=== PATIENT | female | born 1990 | race Caucasian/White ===

== ENCOUNTER 2024-08-04 10:07 | Emergency (ER) | payer BC, SELFPAY ==
--- NOTE | 2024-08-04 10:09 | ED.URI ---
HPI - URI/Sore Throat General Chief Complaint: Upper Respiratory Infection Stated Complaint: cold like Time Seen by Provider: 08/04/24 10:09 Source: patient Mode of arrival: ambulatory Limitations: no limitations History of Present Illness HPI Narrative: Patient is a 34-year-old female who presents with 1 week cough. With 5 days of body aches, chills and fevers. Fever highest of 102. Denies fever this morning. States she started having shortness of breath and feeling her chest rattle last night. Has been taking Delsym, Tylenol and Mucinex. Related Data Allergies Allergy/AdvReac Type Severity Reaction Status Date / Time No Known Allergies Allergy Unverified 08/04/24 10:23 Review of Systems Review of Systems: All systems reviewed & are unremarkable except as noted in HPI and below Constitutional: Constitutional: Reports chills, Denies fatigue, Reports fever(s), Denies headache(s), Denies malaise and Denies weakness Eyes: Eyes: Denies blurry vision, Denies itchy eyes and Denies loss of vision ENT: Denies otalgia, Denies headache(s), Denies nasal congestion, Denies sinus pain and Denies sore throat Cardiovascular: Cardiovascular: Denies chest pain, Denies irregular heart rhythm and Denies dyspnea Respiratory: Respiratory: Reports cough and Denies dyspnea Gastrointestinal: Gastrointestinal: Denies abdominal pain, Denies diarrhea, Denies nausea and Denies vomiting Musculoskeletal: Musculoskeletal: Denies back pain, Reports myalgias and Denies arthralgias Integumentary/Breasts: Skin/Breast: Denies pruritus and Denies rash Neurologic: Denies headache(s), Denies loss of vision and Denies weakness Psychiatric: Psychiatric: Reports no additional psychiatric complaints Endocrine: Endocrine: Denies fatigue Allergic/Immunologic: Allergic/Immunologic: Denies itchy eyes PMFSH Past Medical History Medical History IBS (irritable bowel syndrome) Surgical History Surgical History H/O pelvic surgery Family History Family History Father Alcoholism Mother Heart disease Sibling Asthma Grandparent Cervical cancer Cerebrovascular accident Social History Social History Social History: 01/10/24 Smoking status: Never smoker Alcohol intake: current Substance use: never Do You Feel Safe in your Home?: Yes Lack of Transportation: No Lack of Food: Never True Current Housing: I Have Housing Concerned About Future Housing: No Difficulty Paying Gas/Electric Bills: No Difficulty Paying for Meds: No Currently Unemployed: No Education: Associate Degree Difficulty w/ Childcare or Family Care: No Living arrangements: with family Additional living arrangements comments: Occupation/Education: occupation 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 There is no relevant family history pertinent to the presenting complaint. Exam Const: General: cooperative, healthy appearing, comfortable, no acute distress and well nourished Nutritional Appearance: well nourished Orientation/consciousness: patient oriented x3 Limitations: no limitations HENMT: Head: normal to inspection, normocephalic and atraumatic Ears: hearing grossly normal bilaterally, external ears normal, TM's normal bilaterally, EAC's normal and no periauricular adenopathy Face/Nose/Sinus: Normal external nose present, Abnormal mucous membranes and turbinates present erythematous bilateral and diffuse, normal facial exam, sinuses nontender and face symmetric Face and sinus: normal facial exam, sinuses nontender and face symmetric Mouth: Yes Normal oral and palatal mucosa present, Yes lip normal, Yes tongue normal, Yes Normal salivary glands and ducts present, Yes oropharynx normal and Yes moist mucous membranes Teeth and gingiva: dentition normal Throat: tonsils normal, uvula midline and posterior oropharynx abnormal erythema Eyes: General: appearance normal, both eyes and all related structures Alignment and Position: alignment normal and position normal Periorbital: periorbital findings normal Eyelids: eyelids normal Pupils: Equal, round and reactive pupils present Neck: Neck: normal visual inspection, full ROM, no lymphadenopathy and supple Chest: Chest palpation & inspection: normal inspection of the chest and normal palpation of entire chest wall Resp: Effort & Inspection: normal respiratory effort and able to speak in complete sentences Auscultation: no crackles, no rales, rhonchi upper bilaterally and no wheezes Cardio: Rate: regular rate Rhythm: regular rhythm Heart sounds: S1 normal heart sound present and S2 normal heart sound present GI: Inspection: normal to inspection Skin: General skin exam: normal color and no rashes or lesions noted Neuro: General: patient oriented x3 and moves all extremities Cranial nerves: Yes Equal, round and reactive pupils present Speech: normal speech Gait exam (Neuro): Normal gait present Extrem: General: normal to inspection, full ROM and no edema Psych: Appearance: grossly normal and well kempt Mental Status: mental status grossly normal Speech and movement: Normal speech and movement present Affect: normal affect Attitude: cooperative Thought process: Normal thought process present Course Course Emergency Course: Discharge instructions reviewed with patient, as well as provided in writing per nursing staff. The instructions also include specific and strict return/GO TO THE ER as well as f/u information. All questions have been answered, and the patient deny any further questions with discharge and discharge plan. Portions of this record may have been created with voice recognition software Level of Care: Express Care Visit Vital Signs Vital signs: Vital Signs Temperature 36.4 C 08/04/24 10:21 Pulse Rate 97 08/04/24 10:21 Respiratory Rate 17 08/04/24 10:21 Blood Pressure 128/80 08/04/24 10:21 Pulse Oximetry 95 08/04/24 10:21 Oxygen Delivery Room Air 08/04/24 10:21 Temperature 36.4 C 08/04/24 10:21 Pulse Rate 97 08/04/24 10:21 Respiratory Rate 17 08/04/24 10:21 Blood Pressure 128/80 08/04/24 10:21 Pulse Oximetry 95 08/04/24 10:21 Oxygen Delivery Room Air 08/04/24 10:21 Reviewed MDM - URI/Sore Throat MDM Narrative Medical decision making narrative: Patient negative for flu and COVID. Length of illness and exam consistent with bacterial bronchitis. Will treat with antibiotics, steroid, albuterol inhaler and Tessalon Perles. Pt well hydrated appearing, in no respiratory distress, hemodynamically stable. Recommend supportive care. The patient is stable at time of discharge the clinical impression was discussed and the patient was given the opportunity to ask questions, which were addressed as completely as possible given the information available at present. Anticipatory guidance and return to care precautions were discussed and the importance of primary care follow-up was stressed and encouraged. The patient voiced understanding of the plan, indications to return, and the need for follow-up. Exam findings show no acute concerns or changes Patient is appropriate for outpatient treatment and follow-up. Differential diagnosis considered: Valverde virus, strep pharyngitis, allergic rhinitis, upper respiratory tract infection, sinusitis, rhinosinusitis, nasopharyngitis. viral pharyngitis, otitis media, otitis externa, otitis effusion, foreign body, cerumen impaction, viral syndrome, and influenza.? Medical Records Attestation: I reviewed the patient's medical records. Lab Data Attestation: I reviewed the patient's lab results. Labs: Lab Results 08/04/24 Range/Units 10:35 POC Influenza A Ag Negative (Negative) POC Influenza B Ag Negative (Negative) POC SARS CoV-2 Ag Negative (Negative) Discharge Plan Discharge Clinical Impression: Acute purulent bronchitis Patient Disposition: Home Condition: Stable Instructions: Acute Bronchitis (ED) Additional Instructions: Take antibiotic as prescribed. Take steroids in the morning with food. Use Tessalon Perles as needed for cough. Use inhaler with spacer as needed. Other symptomatic treatments include: -Alternate Tylenol and Motrin per package directions for fever or pain: Tylenol 650-1000mg by mouth every 4-6 hours. Do not exceed 4000mg in 24 hours. Advil (Ibuprofen) 600 mg by mouth every 6 hours. Do not exceed 2400mg in 24 hours. 8 AM: Tylenol 11 AM: Ibuprofen 2 PM: Tylenol 5 PM: Ibuprofen 8 PM: Tylenol 11 PM: Ibuprofen 2 AM: Tylenol 5 AM: Ibuprofen -Antihistamine medication such as Benadryl at night and Zyrtec/Claritin/Jeanine during the day can help improve symptoms. -Use Flonase twice a day for 5 days then daily to help reduce the inflammation and dry up your sinuses. -You can also use Sudafed or Mucinex. Be sure to drink plenty of water with these medications at least 8 ounces with every dose and it is important to drink 8 to 10 glasses of water per day. Water is a natural decongestant -Eat and drink things that are easy to swallow, like tea or soup, or popsicles. -Oral rinses such as: Salt water gargles and/or may use topical anesthetic (eg. Chloraseptic spray) or lozenges to relieve dryness or throat pain). -Frequent hand washing or hand wetlands technician is one of the best ways to prevent spread of infection. -Using a vaporizer or humidifier at night will also help thin secretions and help with coughing up phlegm. Call your Primary Care Doctor and make a follow-up appointment in 3 days. If your cough worsens, you develop a fever greater than 103, you develop shaking chills, a fast heartbeat, trouble breathing and/or feel you are are breathing much faster than usual, call your Primary Care Doctor or go to the ER. Patient Language: Belarusian Prescriptions: New (DME) Aerochamber MV Spacer See Rx Instructions .Route Qty: 1 0RF Rx Instructions: As directed azithromycin 250 mg tablet See Rx Instructions .ROUTE .COMPLEX Qty: 6 0RF Rx Instructions: For 250 mg dose pack: take 500 mg today (day 1), then 250 mg for 4 days (days 2-5) benzonatate 100 mg capsule 100 mg PO BID PRN (Reason: cough) Qty: 14 0RF albuterol sulfate 90 mcg/actuation HFA aerosol inhaler 2 puff inhalation QID PRN (Reason: shortness of breath or wheezing) Qty: 6.7 0RF prednisone 20 mg tablet 40 mg PO DAILY 5 Days Qty: 10 0RF Follow-up/Referrals: Pamela Mario APRN [Primary Care Provider] - 3 Days Time of Disposition: 10:43
[2024-08-04 10:21] VITALS: BP 128/80; PULSE 97; RESP 17; TEMP 36.4; O2SAT 95
[2024-08-04 10:37] LABS: EDCOVIDSCREEN Negative (Negative); EDINFLUASCREEN Negative (Negative); EDINFLUBSCREEN Negative (Negative)
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
== END 2024-08-04 10:46 | disposition home or self-care (01) ==
PROVIDERS: Emergency Provider Nurse Practitioner Family; PCP Nurse Practitioner Family
DX: J20.9 Acute bronchitis, unspecified (principal); Z20.822 Contact with and (suspected) exposure to COVID-19; K58.9 Irritable bowel syndrome, unspecified
CPT/HCPCS: 87426; 87804; 99213; G0463

== ENCOUNTER 2025-02-10 18:55 | Emergency (ER) | payer BC, SELFPAY ==
--- NOTE | ~2025-02-10 | US_ITS ---
US OB <=14 wk fetus w TV INDICATION:4 weeks, LLQ pain, bleeding, r/o ectopic COMPARISON: None. TECHNIQUE: Transvaginal ultrasound of the pelvis was performed. FINDINGS: The uterus measures 7.7 x 3.5 x 5.7 cm. No intrauterine identified. There is a cystic structure in the cervix measuring 7 x 4 x 5 mm may represent gestational sac. The right ovary measures 2 x 1.7 x 2.4 cm. The left ovary measures 2.3 x 2 x 1.6 cm. The ovaries are normal in appearance. No adnexal masses are seen. Trace fluid is noted around the ovaries. IMPRESSION: No live intrauterine identified. There is a cystic structure in the cervix may represent a gestational sac. Follow-up with executive consultant is recommended. Reviewed, dictated and finalized at location S. IMPRESSION: No live intrauterine identified. There is a cystic structure in the c ervix may represent a gestational sac. Follow-up with executive consultant is recommend ed.
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
[2025-02-10 19:20] VITALS: BP 139/74; PULSE 78; RESP 18; TEMP 37.2; O2SAT 100
[2025-02-10 19:56] LABS: BEDSIDEPREGUCG Positive (Negative)
[2025-02-10 19:57] LABS: Hematocrit 38.5 % (37.0-47.0); Hemoglobin 12.8 g/dL (12.0-15.0); Immature Granulocyte Percent A 0.4 % (0-0.5); Lymphocytes Absolute Auto 3.22 K/mm3 (0.9-3.2); Mean Corpuscular HGB Conc 33.2 g/dl (32-36); Mean Corpuscular Hemoglobin 30.8 pg (26-34); Mean Corpuscular Volume 92.5 fl (80-100); Nucleated Red Blood Cells Absolute Auto 0.000 K/mm3 (0.0-0.012); Nucleated Red Blood Cells Perc 0.0 % (0.0-0.2); Platelet Count Result 292 k/mm3 (150-375); Red Blood Count 4.16 M/mm3 (4.2-5.4); White Blood Count 11.9 K/mm3 (4.5-10.0)
[2025-02-10 20:04] LABS: Add Urine Microscopic? YES; Appearance Urine Clear (Clear); Glucose Urine UA Negative (Negative); Leukocyte Esterase Ur Negative LEU/UL (Negative); Nitrate Urine Negative (Negative); Non Pathogenic Casts 0-2; Specific Grav Ur 1.012 (1.001-1.035)
[2025-02-10 20:08] LABS: Alanine Aminotransferase 25 U/L (6-35); Albumin Level 4.5 g/dL (3.5-5.1); Alkaline Phosphatase 89 U/L (38-126); Anion Gap 9 mmol/L (4-12); Aspartate Amino Transferase 30 U/L (14-36); Bilirubin,Total 0.5 mg/dL (0.2-1.3); Blood Urea Nitrogen 12 mg/dL (7-17); Calcium 9.0 mg/dL (8.4-10.2); Carbon Dioxide 25 mmol/L (22-30); Chloride 102 mmol/L (98-107); Estimated CRCL calculation 82 ml/min; Estimated Glomerular Filt Rate > 60; Glucose 121 mg/dL (65-110); Potassium 3.6 mmol/L (3.4-5.0); Sodium 136 mmol/L (137-145); Total Protein 8.1 g/dL (6.3-8.2)
[2025-02-10 20:10] LABS: INR 1.0; Partial Thromboplastin Time 24.9 Seconds (22.3-36.8); Prothrombin Time 12.9 Seconds (11.1-14.7)
[2025-02-10 20:26] LABS: Beta HCG Quantitative 192.87 mIU/ML
--- OUTSIDE RECORDS SUMMARY | 2025-02-10 20:36 | XMS_ITS | Clinical Summary ---
Author Organization [facility] Address [address] [place] [address] Phone Care Team Providers Care Barn Worker Name Role Phone No, Physician Unavailable Pamela Mario FARO DEALER Primary Care Provider + Allergies Active Allergy Reactions Criticality Noted Date Comments Pepper Anaphylaxis High 05/22/2024 Carries Epi Pen / [place] pepper Medications EPINEPHrine 0.3 mg/0.3 mL auto-injection [...] (07/31/2021): Added automatically from request for surgery [id number] Lactose intolerance 11/12/2016 Surgical History Surgery Date [...] drink = 0.6 oz pur e alcohol) [facility] Answer Date Recorded Q1: How [...] 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 file Not on file Obstetrics History Para Term AB IAB SAB Ectopic Multiple Livin g Live Births 0 0 0 0 0 0 0 0 0 0 0 Last Filed Vital Signs Vital Sign Reading Time Taken Comments Blood Pressure 109/49 06/29/2024 9:30 AM SOFTWARE DESIGNER Pulse 69 06/29/2024 9:30 AM SOFTWARE DESIGNER Temperature 36.5 C (97.7 F) 06/29/2024 8:50 AM SOFTWARE DESIGNER Respiratory Rate 13 06/29/2024 9:30 AM SOFTWARE DESIGNER Oxygen Saturation 95% 06/29/2024 9:30 AM SOFTWARE DESIGNER Inhaled Oxygen Concentration - - Weight 74 kg (163 lb 2.3 oz) 06/29/2024 5:58 AM SOFTWARE DESIGNER Height 167.6 cm (5' 6) 05/22/2024 10:50 AM SOFTWARE DESIGNER Body Mass Index 26.33 05/22/2024 10:50 AM SOFTWARE DESIGNER Plan of Treatment Health Maintenance Due Date [...] this topic Medical Devices Implanted Type Area Risk And Compliance Analytics Director Device Identifier Shelf Expiration Date Model / Serial / Lot Synthes 7.3mm 8.2mm 2.9mm 100mm 32mm Cannulated Self Tap Self Drill 209.900 - [id number] Implanted:Qty: 1 on 07/31/2021 by Diony Knox MD at [facility] Left: Iliac Crest Synthes I 209.900 / / Synthes 219.99 13mm Washer Orthopedic Stainless Steel Nonsterile 6.5/7/7.3mm - [id number] Implanted:Qty: 2 on 07/31/2021 by Diony Knox MD at [facility] Left: Iliac Crest Synthes I 219.99 / / Synthes 209.740 7.3mm 8.2mm 140mm Cannulated Self Drilling Self Tapping Large - [id number] Implanted:Qty: 1 on 07/31/2021 by Diony Knox MD at [facility] Left: Iliac Crest Synthes I 209.740 / / Explanted Type Area Risk And Compliance Analytics Director Device Identifier Shelf Expiration Date Model / Serial / Lot [employer] [id number] Evin .062in 9in Trocar Point One End Orthopedic Wire - [id number] Explanted:Qty: 2 on 07/31/2021 at [facility] Left: Iliac Crest [employer] [id number] S / / [place] [employer] [place] [employer] [place] [facility] CHOICE PLUS [facility] Advance Directives For more information, please contact: [phone] * Full Code (Latest Code Status on File) Date Activated Date Inactivated Comments 07/31/2021 5:46 AM 08/03/2021 4:29 PM Care Teams Barn Worker Relationship Specialty Start Date End Date Pamela Mario NP PCP - General Nurse Practitioner 06/16/24 No, Physician 01/08/24
--- NOTE | 2025-02-10 22:14 | ED_ITS ---
HPI - General Chief complaint: Vaginal Bleeding Stated complaint: cramping/bleeding, - unsure how far along Time Seen by Provider: 02/10/25 20:02 Source: patient Mode of arrival: ambulatory Limitations: no limitations History of Present Illness HPI Narrative: Patient is a 34-year-old female who presents the ED with report of vaginal bleeding. Patient reports she is currently . Unsure how far along. Last normal menstrual cycle was January 24. Typically does have normal menstrual cycles. Began having breast tenderness and appetite changes with a positive test at home. . Sees Dr. Luís Bhagat. Over the past couple days has been having light pink spotting. Today began having heavier bright red bleeding as well as pain/cramping throughout her left-sided abdomen. States pain has been intermittently severe since this afternoon, but is improved currently. Did not take anything for the pain. Related Data Allergies Allergy/AdvReac Type Severity Reaction Status Date / Time No Known Allergies Allergy Unverified 08/04/24 10:23 Review of Systems 2 Review of Systems: All systems reviewed & are unremarkable except as noted in HPI. All systems reviewed & are unremarkable except as noted in HPI and below PMFSH Past Medical History Medical History IBS (irritable bowel syndrome) Surgical History Surgical History H/O pelvic surgery Family History Family History Father Alcoholism Mother Heart disease Sibling Asthma Grandparent Cervical cancer Cerebrovascular accident Social History Social History Social History: 01/10/24 Smoking status: Never smoker Alcohol intake: current Substance use: never Do You Feel Safe in your Home?: Yes Lack of Transportation: No Lack of Food: Never True Current Housing: I Have Housing Concerned About Future Housing: No Difficulty Paying Gas/Electric Bills: No Difficulty Paying for Meds: No Currently Unemployed: No Education: Associate Degree Difficulty w/ Childcare or Family Care: No Living arrangements: with family Additional living arrangements comments: Occupation/Education: occupation 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 HEAD: Normocephalic, atraumatic. RESPIRATORY: Airway patent, respirations nonlabored. CARDIOVASCULAR: Regular rate and rhythm without murmurs, rubs, or gallops. ABDOMINAL: Soft, no significant focal tenderness, nondistended. Normoactive BS. PELVIC: Normal external genitalia. Small amount of dark red blood in vaginal vault with small clots. Cervix appears unremarkable. No significant CMT MUSCULOSKELETAL: Moves all extremities. No gross deformities. SKIN: Warm, dry, normal color. NEURO: A&O X3. Speech clear. Cranial nerves II-XII grossly intact. Steady gait. No ataxic movements. PSYCHIATRIC: Appropriate mood and affect. Normal interaction. Course Vital Signs Vital signs: Vital Signs Temperature 98.9 F 02/10/25 19:20 Pulse Rate 78 02/10/25 19:20 Respiratory Rate 18 02/10/25 19:20 Blood Pressure 139/74 02/10/25 19:20 Pulse Oximetry 100 02/10/25 19:20 Oxygen Delivery Room Air 02/10/25 19:20 Temperature 98.9 F 02/10/25 19:20 Pulse Rate 78 02/10/25 19:20 Respiratory Rate 18 02/10/25 19:20 Blood Pressure 139/74 02/10/25 19:20 Pulse Oximetry 100 02/10/25 19:20 Oxygen Delivery Room Air 02/10/25 19:20 MDM - OB/Uterine Contractions MDM Narrative Medical decision making narrative: Patient presented to ED with left lower abdominal pain, vaginal bleeding, currently , unsure how far along. . Vital signs stable upon arrival. Patient denying current pain. She is in no acute distress. Laboratory studies with white blood cell count of 11.9. H&H is stable. Beta hCG is 192. UA with 2+ blood, no signs of infection. Blood type is O positive, no indication for RhoGAM. Ob ultrasound was obtained and without evidence of injury . Does show a cystic structure, possibly a gestational sac in the cervix. Discussed these findings with patient, unfortunately seems most consistent with spontaneous miscarriage. Discussed performing pelvic exam. Patient is agreeable. Pelvic exam without obvious clot or tissue coming from cervix. Small amount of dark red blood in vault. Discussed expectant management, bleeding precautions. Patient otherwise safe for discharge home at this time. Advised to have close follow-up with OBGYN for further evaluation, repeat laboratory testing, repeat ultrasound. Patient is planning to go out of town tomorrow. Will place lab order for her to have beta-hCG early next week. Discussed return precautions. Patient voiced understanding. Feels comfortable going home at this time. Discharged in stable condition. Medical Records Attestation: I reviewed the patient's medical records. Lab Data Attestation: I reviewed the patient's lab results. 02/10/25 19:48 02/10/25 19:48 Labs: Lab Results 02/10/25 02/10/25 Range/Units 19:48 19:55 WBC 11.9 H (4.5-10.0) K/mm3 RBC 4.16 L (4.2-5.4) M/mm3 Hgb 12.8 (12.0-15.0) g/dL Hct 38.5 (37.0-47.0) % MCV 92.5 (80-100) fl MCH 30.8 (26-34) pg MCHC 33.2 (32-36) g/dl RDW 11.7 (11.5-14.5) % Plt Count 292 (150-375) k/mm3 MPV 10.1 (7.4-10.4) fl Immature Gran % (Auto) 0.4 (0-0.5) % Neut % (Auto) 61.7 (45.5-73.1) % Lymph % (Auto) 27.0 (18.3-44.2) % Dickey % (Auto) 9.3 H (2.6-8.5) % Eos % (Auto) 1.0 (0-4.4) % Baso % (Auto) 0.6 (0.2-1.2) % Lymph # (Auto) 3.22 H (0.9-3.2) K/mm3 Dickey # (Auto) 1.1 H (0.1-0.6) K/mm3 Eos # (Auto) 0.1 (0-0.3) K/mm3 Baso # (Auto) 0.1 (0.0-0.1) K/mm3 Abs Immat Gran (auto) 0.05 H (0.00-0.031) K/mm3 Absolute Neuts (auto) 7.4 H (1.3-6.7) K/mm3 Absolute Nucleated RBC 0.000 (0.0-0.012) K/mm3 Nucleated RBC % 0.0 (0.0-0.2) % PT 12.9 (11.1-14.7) Seconds INR 1.0 APTT 24.9 (22.3-36.8) Seconds Sodium 136 L (137-145) mmol/L Potassium 3.6 (3.4-5.0) mmol/L Chloride 102 (98-107) mmol/L Carbon Dioxide 25 (22-30) mmol/L Anion Gap 9 (4-12) mmol/L BUN 12 (7-17) mg/dL Creatinine 0.80 (0.7-1.0) mg/dL Estim Creat Clear Calc 82 ml/min Estimated GFR > 60 (59 - ) Glucose 121 H (65-110) mg/dL Calcium 9.0 (8.4-10.2) mg/dL Total Bilirubin 0.5 (0.2-1.3) mg/dL AST 30 (14-36) U/L ALT 25 (6-35) U/L Alkaline Phosphatase 89 (38-126) U/L Total Protein 8.1 (6.3-8.2) g/dL Albumin 4.5 (3.5-5.1) g/dL Beta HCG, Quant 192.87 mIU/ML Urine Color Yellow (Yellow) Urine Appearance Clear (Clear) Urine pH 7.0 (5.0-9.0) Ur Specific [place] 1.012 (1.001-1.035) Urine Protein Negative (Negative) mg/dL Urine Glucose (UA) Negative (Negative) mg/dL Urine Ketones Negative (Negative) mg/dL Ur Blood (Man) 2+ H (Negative) Urine Nitrate Negative (Negative) Urine Bilirubin Negative (Negative) Urine Urobilinogen 0.2 (<2.0) mg/dL Leukocyte Esterase Rfl Negative (Negative) EVERT/UL Urine RBC 0-2 (0-2) /hpf Urine WBC 0-5 (0-3) /hpf Ur Squamous Epith Cells None seen (Few) /hpf Urine Bacteria None seen /hpf Urine Casts 0-2 POC Urine HCG, Qual Positive (Negative) Blood Type O Positive Antibody Screen Negative Screen TNP Baby's Blood Type TNP Baby's RAGHAVENDRA TNP Doses of RhIg Required 0 Imaging Data Attestation: I personally reviewed and interpreted this imaging study as follows: Radiologist's impression: ITS Impressions Obstetrics Ultrasound 02/10/25 22:01 IMPRESSION: No live intrauterine identified. There is a cystic structure in the cervix may represent a gestational sac. Follow-up with sap hana architect is recommended. Discharge Plan Discharge Clinical Impression: Spontaneous miscarriage Patient Disposition: Home Condition: Stable Instructions: Antibiotic Form, Miscarriage (ED) Additional Instructions: Your workup here was unfortunately consistent with likely miscarriage. Continue to monitor bleeding. Recommend close follow-up with OBGYN for further evaluation, repeat laboratory testing and ultrasound. Call office to make appointment. Return to the ED if you experience worsening or severe bleeding, severe pain, passing out, feeling dizzy or lightheaded, unable to keep down food or drink, or any other symptoms of concern. Patient Language: Mongolian Prescriptions: No Action (DME) Aerochamber MV Spacer See Rx Instructions .Route Qty: 1 0RF Rx Instructions: As directed azithromycin 250 mg tablet See Rx Instructions .ROUTE .COMPLEX Qty: 6 0RF Rx Instructions: For 250 mg dose pack: take 500 mg today (day 1), then 250 mg for 4 days (days 2-5) benzonatate 100 mg capsule 100 mg PO BID PRN (Reason: cough) Qty: 14 0RF albuterol sulfate 90 mcg/actuation HFA aerosol inhaler 2 puff inhalation QID PRN (Reason: shortness of breath or wheezing) Qty: 6.7 0RF prednisone 20 mg tablet 40 mg PO DAILY 5 Days Qty: 10 0RF Other Ambulatory Orders: Beta HCG Quantitative (Routine) Timeframe: 1 Week Location: Determined by Patient Ordered By: Gloria Coelho Follow-up/Referrals: Pamela Mario APRN [Primary Care Provider, Family Practice] Jasson Dave MD [Physician, [employer]] Referral Note: OBGYN Time of Disposition: 23:21
== END 2025-02-10 23:37 | disposition home or self-care (01) ==
PROVIDERS: Student in an Organized Health Care Education/Training Program; Emergency Provider Physician Assistant; PCP Nurse Practitioner Family
DX: O03.9 Complete or unspecified spontaneous abortion without complication (principal)
CPT/HCPCS: 36415; 76801; 76817; 80053; 81001; 81025; 84702; 85025; 85461; 85610; 85730; 86850; 86900; 86901; 99284